=== PATIENT | male | born 1975 | race Caucasian/White ===

== ENCOUNTER 2017-09-23 22:30 | Emergency (ER) | payer MEDICAID ==
[~2017-09-23] VITALS: Ht 172.7 cm; Wt 72.7 kg
[~2017-09-23 22:30] MED LIST: OMEP10CA2 PO
[2017-09-23] MEDS ORDERED: DIPH,PERTUSS(ACELL),TET VAC/PF 0.5 ML IM-VACC ONE ×2 (23:30→23:54)
[2017-09-23] MEDS ORDERED: SODIUM CHLORIDE FLUSH 10ML SYR IVF ONE (23:30)
[2017-09-24] MEDS ORDERED: LIDOCAINE-MPF 1%, 5ML ONE ×2 (00:55→02:02)
[2017-09-24] MEDS ORDERED: HYDROmorphone 1 MG/ML, 1ML ONE (00:55)
[2017-09-24] MEDS ORDERED: HYDROmorphone 1 MG/ML, 1ML IM ONE (01:00)
[2017-09-24] MEDS ORDERED: LIDOCAINE-MPF 1%, 5ML INFIL ONE (01:00)
[2017-09-24] MEDS ORDERED: FLUORESCEIN OPHTHALMIC 1 MG STRIP ONE (01:20)
[2017-09-24] MEDS ORDERED: PROPARACAINE OPHTH 0.5%, 15ML ONE (01:20)
[2017-09-24] MEDS ORDERED: MOXIFLOXACIN OPHTH O.5%, 3ML EACHEYE STA (01:31)
[2017-09-24 05:21] VITALS: BP 175/92
== END 2017-09-24 03:21 ==
LOC: ED 09-24 03:15
DX: S01.111A Laceration without foreign body of right eyelid and periocular area, initial encounter (principal); S02.2XXA Fracture of nasal bones, initial encounter for closed fracture; S05.02XA Injury of conjunctiva and corneal abrasion without foreign body, left eye, initial encounter; H11.32 Conjunctival hemorrhage, left eye; V89.2XXA Person injured in unspecified motor-vehicle accident, traffic, initial encounter; Y93.89 Activity, other specified; Y92.89 Other specified places as the place of occurrence of the external cause; Y99.8 Other external cause status
CPT/HCPCS: 12011; 70450; 70486; 72125; 73564; 96372; 99284; J1170